=== PATIENT | male | born 1985 | race Two or more races ===

== ENCOUNTER 2019-06-22 23:20 | Emergency (ER) | payer MEDICAID ==
[~2019-06-22] VITALS: Ht 170.2 cm; Wt 79.4 kg
[2019-06-23 00:05] VITALS: BP 141/95
== END 2019-06-23 01:06 | disposition home or self-care (01) ==
LOC: ER 23:20
DX: S61.411A Laceration without foreign body of right hand, initial encounter (principal); X58.XXXA Exposure to other specified factors, initial encounter; Y93.89 Activity, other specified; Y92.89 Other specified places as the place of occurrence of the external cause; Y99.8 Other external cause status
CPT/HCPCS: 12002

== ENCOUNTER → 2019-07-03 | Emergency (ER) | payer MEDICAID ==
[~2019-07-03] VITALS: Ht 170.2 cm; Wt 79.4 kg
[2019-07-03 07:40] VITALS: BP 140/85
== END | disposition home or self-care (01) ==
LOC: ER 07:27
DX: S61.411D Laceration without foreign body of right hand, subsequent encounter (principal); X58.XXXD Exposure to other specified factors, subsequent encounter

== ENCOUNTER 2019-07-29 21:01 | Emergency (ER) | payer MEDICAID ==
[~2019-07-29] VITALS: Ht 170.2 cm; Wt 79.4 kg
[2019-07-29 22:12] LABS: Basophils # (auto) 0.1 10 ^3/uL (0-0.2); Basophils % (auto) 0.7 % (0.0-2.0); Eosinophils # (auto) 0.1 10 ^3/uL (0-0.8); Eosinophils % (auto) 0.9 % (0.0-7.0); Hematocrit 50.4 % (41.0-53.0); Hemoglobin 16.7 g/dL (13.5-17.5); Lymphocytes # (auto) 2.5 10 ^3/uL (0.4-5.4); Lymphocytes % (auto) 22.2 % (10.0-50.0); Mean Corpuscular Hemoglobin 31.4 pg (28.0-32.0); Mean Corpuscular Volume 95.2 fL (80.0-100.0); Monocytes % (auto) 8.6 % (0.0-12.0); Neutrophils # (auto) 7.6 10 ^3/uL (1.6-8.6); Neutrophils % (auto) 67.6 % (37.0-80.0); Nucleated Red Blood Cells % 0.2 %; Platelet Count (auto) 368 10^3/uL (140-450); Red Cell Distribution Width 13.2 % (11.8-14.3); White Blood Cell 11.2 10^3/uL (4.4-10.8)
[2019-07-29 22:29] LABS: Albumin 4.2 g/dL (3.4-5.0); BUN/Creatinine Ratio 12.2; Calcium 8.9 mg/dL (8.5-10.1); Magnesium 2.7 mg/dL (1.6-2.6); Potassium 3.5 mmol/L (3.5-5.1)
[2019-07-29 22:32] LABS: Bilirubin, Total 0.3 mg/dL (0.2-1.0); Total Protein 8.5 g/dL (6.4-8.2)
[2019-07-29 22:35] LABS: Partial Thromboplastin Time 31.5 sec (23.64-32.05)
[2019-07-29] MEDS ORDERED: PANTOPRAZOLE 40 MG/10 ML VIAL INJ IV ONE (23:15)
[2019-07-29] MEDS ORDERED: THIAMINE INJ 100 MG in SODIUM CHLORIDE 0.9% 1,000 ML IV ONE (23:15)
[2019-07-29] MEDS ORDERED: ONDANSETRON HCL 4 MG/2 ML VIAL IV ONE (23:15)
[2019-07-29] MEDS ORDERED: PANTOPRAZOLE 40mg/50ML NS AE 50 ML IV ONE (23:15)
[2019-07-29] MEDS ORDERED: SODIUM CHLORIDE 0.9% 1,000 ML IV ONE (23:15)
[2019-07-30] MEDS ORDERED: THIAMINE 100mg/ml INJ (200mg/2ml VIAL) ONE (01:17)
[2019-07-30 02:08] VITALS: BP 126/73
== END 2019-07-30 02:35 | disposition home or self-care (01) ==
LOC: ER 21:06
DX: K92.2 Gastrointestinal hemorrhage, unspecified (principal); F10.20 Alcohol dependence, uncomplicated; K70.30 Alcoholic cirrhosis of liver without ascites; K85.90 Acute pancreatitis without necrosis or infection, unspecified; Y90.4 Blood alcohol level of 80-99 mg/100 ml
CPT/HCPCS: 36415; 74176; 80053; 80320; 82150; 83690; 83735; 85025; 85610; 85730; 86850; 86900; 86901; 96365; 96366; 96375; 99284; C9113; J3411; J7030

== ENCOUNTER 2019-11-13 12:17 | Emergency (ER) | payer MEDICAID ==
[~2019-11-13] VITALS: Ht 170.2 cm; Wt 84.8 kg
[2019-11-13] MEDS ORDERED: SODIUM CHLORIDE 0.9% 1,000 ML IV ONE ×2 (12:30)
[2019-11-13] MEDS ORDERED: PANTOPRAZOLE 40 MG/10 ML VIAL INJ IV ONE (12:30)
[2019-11-13 13:11] LABS: Basophils # (auto) 0.1 10 ^3/uL (0-0.2); Basophils % (auto) 1.3 % (0.0-2.0); Eosinophils # (auto) 0 10 ^3/uL (0-0.8); Eosinophils % (auto) 0.4 % (0.0-7.0); Hematocrit 45.9 % (41.0-53.0); Hemoglobin 15.5 g/dL (13.5-17.5); Lymphocytes # (auto) 1.9 10 ^3/uL (0.4-5.4); Lymphocytes % (auto) 17.5 % (10.0-50.0); Mean Corpuscular Hemoglobin 32.4 pg (28.0-32.0); Mean Corpuscular Hgb Conc. 33.7 g/dL (32.0-36.0); Monocytes # (auto) 0.8 10 ^3/uL (0-1.3); Monocytes % (auto) 6.9 % (0.0-12.0); Neutrophils # (auto) 8.2 10 ^3/uL (1.6-8.6); Neutrophils % (auto) 73.9 % (37.0-80.0); Platelet Count (auto) 332 10^3/uL (140-450); Red Blood Cells 4.78 10^6/uL (4.5-5.90); White Blood Cell 11.1 10^3/uL (4.4-10.8)
[2019-11-13 13:31] LABS: Albumin 4.4 g/dL (3.4-5.0); Anion Gap 9 (5-15); Blood Urea Nitrogen 13 mg/dL (7-18); Carbon Dioxide 20 mmol/L (21-32); Chloride 107 mmol/L (98-107); Glucose 98 mg/dL (74-106); Potassium 3.7 mmol/L (3.5-5.1); Sodium 136 mmol/L (136-145)
[2019-11-13 13:32] LABS: INR 0.99 (0.9-1.15); Partial Thromboplastin Time 30.1 sec (23.0-31.2)
[2019-11-13 13:40] LABS: Alanine Aminotransferase 60 U/L (16-61); Alkaline Phosphatase 47 U/L (45-117); Aspartate Aminotransferase 31 U/L (15-37); BUN/Creatinine Ratio 17.1; Bilirubin, Total 0.4 mg/dL (0.2-1.0); GFR African American 152 mL/min; GFR Non-African American 126 mL/min; Total Protein 8.1 g/dL (6.4-8.2)
[2019-11-13 14:15] VITALS: BP 125/76
[2019-11-13 15:14] LABS: Urine Bacteria FEW /hpf (None Seen); Urine Blood Negative /uL (Negative); Urine Mucus FEW (None Seen); Urine Specific Gravity 1.028 (1.001-1.035); Urine WBC 22 /hpf (0 - 3)
== END 2019-11-13 14:27 | disposition home or self-care (01) ==
LOC: ER 12:17
DX: K29.70 Gastritis, unspecified, without bleeding (principal); E86.0 Dehydration; F17.210 Nicotine dependence, cigarettes, uncomplicated; K21.9 Gastro-esophageal reflux disease without esophagitis
CPT/HCPCS: 36415; 71046; 80053; 81001; 84484; 85025; 85610; 85730; 99284; C9113

== ENCOUNTER 2023-02-03 13:31 | Emergency (ER) | payer MEDICAID ==
[~2023-02-03] VITALS: Ht 170.2 cm; Wt 70.0 kg
[2023-02-03 15:25] LABS: Basophils # (auto) 0.1 10 ^3/uL (0-0.2); Basophils % (auto) 1.4 % (0.0-2.0); Eosinophils # (auto) 0.1 10 ^3/uL (0-0.8); Eosinophils % (auto) 1.1 % (0.0-7.0); Hematocrit 44.5 % (41.0-53.0); Hemoglobin 15.1 g/dL (13.5-17.5); Lymphocytes # (auto) 1.5 10 ^3/uL (0.4-5.4); Lymphocytes % (auto) 18.5 % (10.0-50.0); Mean Corpuscular Hemoglobin 33.7 pg (28.0-32.0); Mean Corpuscular Hgb Conc. 33.9 g/dL (32.0-36.0); Mean Corpuscular Volume 99.3 fL (80.0-100.0); Monocytes # (auto) 0.5 10 ^3/uL (0-1.3); Monocytes % (auto) 6.3 % (0.0-12.0); Neutrophils # (auto) 5.8 10 ^3/uL (1.6-8.6); Neutrophils % (auto) 72.7 % (37.0-80.0); Nucleated Red Blood Cells % 0.1 %; Red Blood Cells 4.48 10^6/uL (4.5-5.90); Red Cell Distribution Width 12.9 % (11.8-14.3)
[2023-02-03 15:29] LABS: Alanine Aminotransferase 69 U/L (7-40); Albumin 4.8 g/dL (3.2-4.8); Alkaline Phosphatase 37 U/L (46-116); Anion Gap 16 (5-15); Aspartate Aminotransferase 80 U/L (13-40); Bilirubin, Total 0.7 mg/dL (0.2-1.0); Calcium 9.4 mg/dL (8.7-10.4); Carbon Dioxide 18 mmol/L (20-30); Chloride 105 mmol/L (98-107); Glucose 85 mg/dL (74-106); Potassium 3.5 mmol/L (3.5-5.1); Sodium 139 mmol/L (136-145); Total Protein 7.7 g/dL (5.7-8.2)
[2023-02-03 15:51] LABS: BUN/Creatinine Ratio 6.3 (10.0-20.0); Blood Urea Nitrogen < 5 mg/dL (9-23)
[2023-02-03] MEDS ORDERED: CIPR1SUS8 OT ×3 (16:14→16:27)
[2023-02-03 16:44] VITALS: BP 151/78; PULSE 96; RESP 17; TEMP 98.3; O2SAT 98
[2023-02-03] MEDS ORDERED: MECLIZINE HCL 25 MG TAB PO ONE (16:45)
[2023-02-03 17:39] LABS: Urine Bacteria NONE SEEN /hpf (None Seen); Urine Blood Negative /uL (Negative); Urine Clarity Clear (Clear); Urine Mucus FEW (None Seen); Urine Protein, UAD Negative (Negative); Urine Specific Gravity 1.008 (1.001-1.035); Urine Urobilinogen Normal (Negative); Urine WBC 1 /hpf (0 - 3); Urine pH 6.5 (5.0-8.0)
[2023-02-03 17:40] LABS: Urine Color STRAW (Yellow)
== END 2023-02-03 16:46 | disposition home or self-care (01) ==
LOC: ER 13:31
DX: H60.92 Unspecified otitis externa, left ear (principal); K21.9 Gastro-esophageal reflux disease without esophagitis; F17.210 Nicotine dependence, cigarettes, uncomplicated
CPT/HCPCS: 36415; 80053; 81001; 84484; 85025; 93005